=== PATIENT | female | born 2000 | race Caucasian/White ===

== ENCOUNTER 2019-07-25 11:11 | Observation (INO) | payer OTHER, SELFPAY ==
--- NOTE | 2019-07-25 11:21 | ED_ITS ---
Entered by Ilda Murry, acting as scribe for HPI - General Adult General: Chief complaint: Abdominal Pain Stated complaint: ABD PAIN Time Seen by Provider: 07/25/19 11:21 History of Present Illness: HPI narrative: 19 yo female presents with abd pain. Pt states that she has had this since Saturday night, her pain has lessoned but is still present. Pt states that she vomited from night until Saturday morning. Pt denies any abnormal vaginal discharge. MD complaint: low abdomen pain Onset (ago): day(s) (3) Location: abdomen Radiation: abdomen Severity: moderate Quality: stabbing Pain Consistency: constant Relieving factors: none Exacerbating factors: movement Associated symptoms: Reports nausea and vomiting; Deny chest pain, dyspnea, headache(s) or rash Review of Systems Const: Denies: fever, chills, body aches or change in appetite Eyes: Denies: blurry vision or eye discomfort ENMT: Denies: throat pain or dental pain Card: Denies: chest pain Resp: Denies: shortness of breath GI: Reports: abdominal pain, nausea and vomiting; Denies: diarrhea : Denies: painful urination Musc: Denies: neck pain or back pain Skin/Breast: Denies: rash Neuro: Denies: headache Psych: Denies: depression Maksim/Lymph: Denies: easy bruising All/Imm: Denies: hives PFSH ED PFSH: Social History Smoking and tobacco status: never smoked Physical Exam Const: COMMON NORMALS: no apparent distress, oriented x3 and healthy appearing HENMT: COMMON NORMALS: normocephalic and head/scalp atraumatic HEAD & SCALP: normocephalic and atraumatic Eye: COMMON NORMALS: PERRL and EOMs intact bilaterally PUPIL: Yes PERRL Neck/C-Spine: COMMON NORMALS: full ROM and supple Chest: COMMONS NORMALS: inspection of chest normal and palpation of chest normal Resp: COMMON NORMALS: normal respiratory effort, no retractions, no use of accessory muscles and clear to auscultation bilaterally AUSCULTATION: clear to auscultation bilaterally Cardio: COMMON NORMALS: regular rate, regular rhythm and no murmurs RATE: regular rate RHYTHM: regular rhythm GI: COMMON NORMALS: normal to inspection, nondistended, normoactive bowel sounds and soft to palpation PALPATION: Yes soft and Yes tender Details: RLQ Extremity: COMMON NORMALS: normal to inspection and full ROM Neuro: COMMON NORMALS: oriented x3, moves all extremities and no focal motor deficits Psych: COMMON NORMALS: mental status grossly normal, thought process normal and cooperative THOUGHT PROCESS: normal thought process Skin: COMMON NORMALS: no rashes or lesions noted and no wounds GENERAL SKIN EXAM: no rashes or lesions noted Course Vital Signs: Vital signs: Vital Signs Temperature 98.5 F 07/25/19 11:24 Pulse Rate 75 07/25/19 11:24 Respiratory Rate 16 07/25/19 11:24 Blood Pressure 113/70 07/25/19 11:24 Pulse Oximetry 100 07/25/19 11:24 MDM - General Adult MDM Narrative: Medical decision making narrative: Patient presents here with abdominal pain right lower quadrant. She has had continued tenderness here that is mild to moderate. Ultrasound showed an ovarian cyst on the left. CT showed possible appendicitis. I spoke to Dr. Weiss and will admit for further abdominal exams and to follow white count. Patient has been stable while here. Lab Data: Labs: Lab Results 07/25/19 07/25/19 07/25/19 Range/Units 11:39 11:39 11:39 WBC 10.4 H (4.0-10.0) 10^3/ uL RBC 4.46 (4.1-5.3) 10^6/u L Hgb 12.5 (11.5-15.3) g/dL Hct 39.3 (37.0-47.0) % MCV 88.1 (81-99) fL MCH 28.0 (28.0-34.0) pg MCHC 31.8 (30.0-36.0) g/dL RDW 13.0 (12.1-15.1) % Plt Count 275 (130-400) 10^3/c mm MPV 9.7 (7.4-10.4) fL Neut % (Auto) 67.3 % Lymph % (Auto) 24.6 % Lamb % (Auto) 6.4 % Eos % (Auto) 0.8 % Baso % (Auto) 0.5 % Neut # (Auto) 7.0 (1.8-7.7) 10^3/u L Lymph # (Auto) 2.6 (0.8-4.8) 10^3/u L Lamb # (Auto) 0.7 (0.2-0.9) 10^3/u L Eos # (Auto) 0.1 (0.0-0.8) 10^3/u L Baso # (Auto) 0.1 (0.0-0.1) 10^3/u L Nucleated RBC % (a uto) 0 % Nucleated RBCs # 0.0 /100WBC Sodium 137 (136-145) mmol/L Potassium 3.9 (3.5-5.1) mmol/L Chloride 98 (98-107) mmol/L Carbon Dioxide 25 (22-29) mmol/L Anion Gap 17.9 (5-19) BUN 9 (6-20) mg/dL Creatinine 0.8 (0.5-0.9) mg/dL GFR Calculation 90.5 (90-130) mL/min Glucose 92 (65-115) mg/dL Calcium 10.5 (8.5-10.5) mg/dL Total Bilirubin 0.5 (0.15-1.2) mg/dL AST 17 (0-32) U/L ALT 10 (0-33) U/L Alkaline Phosphata se 85 (35-105) IU/L Total Protein 8.9 H (6.6-8.7) g/dL Albumin 5.1 (3.5-5.2) g/dL Globulin 3.8 (1.3-4.6) g/dL Lipase 25 (13-60) U/L HCG, Qual Negative (Negative) Urine Color (Yellow) Urine Appearance (CLEAR) Urine pH (5-7) Ur Specific Gravit y (1.005-1.030) Urine Protein (Negative) Urine Glucose (UA) (Normal) Urine Ketones (Negative) Urine Blood (Negative) Urine Nitrate (Negative) Urine Bilirubin (NEGATIVE) Urine Urobilinogen (Negative) mg/dL Ur Leukocyte Juanita ase (Negative) Urine RBC (0-2) /hpf Urine WBC (0-5) /hpf Ur Squamous Epith Cells (0-5) Urine Bacteria (NONE) 07/25/19 Range/Units 11:39 WBC (4.0-10.0) 10^3/ uL RBC (4.1-5.3) 10^6/u L Hgb (11.5-15.3) g/dL Hct (37.0-47.0) % MCV (81-99) fL MCH (28.0-34.0) pg MCHC (30.0-36.0) g/dL RDW (12.1-15.1) % Plt Count (130-400) 10^3/c mm MPV (7.4-10.4) fL Neut % (Auto) % Lymph % (Auto) % Lamb % (Auto) % Eos % (Auto) % Baso % (Auto) % Neut # (Auto) (1.8-7.7) 10^3/u L Lymph # (Auto) (0.8-4.8) 10^3/u L Lamb # (Auto) (0.2-0.9) 10^3/u L Eos # (Auto) (0.0-0.8) 10^3/u L Baso # (Auto) (0.0-0.1) 10^3/u L Nucleated RBC % (a uto) % Nucleated RBCs # /100WBC Sodium (136-145) mmol/L Potassium (3.5-5.1) mmol/L Chloride (98-107) mmol/L Carbon Dioxide (22-29) mmol/L Anion Gap (5-19) BUN (6-20) mg/dL Creatinine (0.5-0.9) mg/dL GFR Calculation (90-130) mL/min Glucose (65-115) mg/dL Calcium (8.5-10.5) mg/dL Total Bilirubin (0.15-1.2) mg/dL AST (0-32) U/L ALT (0-33) U/L Alkaline Phosphata se (35-105) IU/L Total Protein (6.6-8.7) g/dL Albumin (3.5-5.2) g/dL Globulin (1.3-4.6) g/dL Lipase (13-60) U/L HCG, Qual (Negative) Urine Color Yellow (Yellow) Urine Appearance Cloudy (CLEAR) Urine pH 5.0 (5-7) Ur Specific Gravit y 1.030 (1.005-1.030) Urine Protein Trace (Negative) Urine Glucose (UA) Norm (Normal) Urine Ketones 1+ H (Negative) Urine Blood 3+ H (Negative) Urine Nitrate Negative (Negative) Urine Bilirubin Neg (NEGATIVE) Urine Urobilinogen Norm (Negative) mg/dL Ur Leukocyte Juanita ase 1+ H (Negative) Urine RBC 5-10 H (0-2) /hpf Urine WBC 10-15 H (0-5) /hpf Ur Squamous Epith Cells Too numerous to c nt H (0-5) Urine Bacteria 2+ H (NONE) Imaging Data^: CT Abd/Pel: Radiologist's impression: Ordering Provider/Ordering MD: Jaya Andrew MD Date of Service: 07/25/19 Procedure(s): CT abdomen pelvis w con* [id number] Accession Number(s): [id number] Report Number: [id number] PROCEDURE INFORMATION: Exam: CT Abdomen And Pelvis With Contrast Exam date and time: 07/25/2019 11:57 AM Age: 19 years old Clinical indication: Abdominal pain; Localized; Right lower quadrant (rlq); Additional info: Abd pain TECHNIQUE: Imaging protocol: Computed tomography of the abdomen and pelvis with intravenous contrast. Total DLP: 499.28 mGy-cm Radiation optimization: All CT scans at this facility use at least one of these dose optimization techniques: automated exposure control; mA and/or kV adjustment per patient size (includes targeted exams where dose is matched to clinical indication); or iterative reconstruction. Contrast material: OMNI 300; Contrast volume: 75 ml; Contrast route: LT AC; COMPARISON: No relevant prior studies available. FINDINGS: Liver: Normal. No mass. Gallbladder and bile ducts: Normal. No calcified stones. No ductal dilation. Pancreas: Normal. No ductal dilation. Spleen: Normal. No splenomegaly. Adrenals: Normal. No mass. Kidneys and ureters: Normal. No hydronephrosis. Stomach and bowel: Colonic constipation is present. Appendix: Appendix is mildly thickened measuring 8.7 mm seen best on the coronal image 29. No definite periappendiceal inflammatory stranding is seen. Intraperitoneal space: There is a moderate amount of free fluid in the pelvis. There is minimal internal complexity within the fluid raising concern for infection and/or hemorrhagic products. Vasculature: Unremarkable. No abdominal aortic aneurysm. Lymph nodes: Unremarkable. No enlarged lymph nodes. Bladder: Unremarkable as visualized. Reproductive: There are cystic lesions in the left ovary the larger of which measures 4.8 centimetres. Bones/joints: Unremarkable. No acute fracture. Soft tissues: Unremarkable. CT/CT abdomen pelvis w con* [id number] IMPRESSION: 1. Appendix is thickened measuring 8.7 mm. There are no definite periappendiceal inflammatory changes. This is an indeterminate appendix. Differential includes early acute appendicitis versus normal variant. If acute appendicitis is clinically suspected, repeat imaging is recommended. 2. There is a moderate amount of free fluid in the pelvis. Internal complexity within the free fluid raises concern for infection and/or hemorrhagic products. 3. There is a 4.8 cm left ovarian cyst with benign features.Recommend US follow-up in 6-12 weeks. 4. Colonic constipation is present. Discharge Plan Discharge Patient Disposition: Placed in Observation Admit Provider: Lan Weiss Clinical Impression: Abdominal pain Qualifiers: Abdominal location: right lower quadrant Qualified Code(s): R10.31 - Right lower quadrant pain Condition: Stable Discharge Date/Time: 07/25/19 16:39 Coding Level of Care Code ED Roaster Supervisor for Chg Fwd Exam Comprehensive The documentation recorded by the Jeanmarie rob Kialy, accurately reflects the service I personally performed and the decisions made by Lorrie sullivan Korby, MD Jul 25, 2019 11:11
[2019-07-25 11:24] VITALS: BP 113/70; PULSE 75; RESP 16; TEMP 36.9; O2SAT 100
[2019-07-25 11:45] LABS: Basophils # 0.1 10^3/uL (0.0-0.1); Basophils % 0.5 %; Eosinophils # 0.1 10^3/uL (0.0-0.8); Eosinophils % 0.8 %; Hematocrit 39.3 % (37.0-47.0); Hemoglobin 12.5 g/dL (11.5-15.3); Lymphocytes # 2.6 10^3/uL (0.8-4.8); Lymphocytes % 24.6 %; Mean Corpuscular HGB Conc 31.8 g/dL (30.0-36.0); Mean Corpuscular Volume 88.1 fL (81-99); Mean Platelet Volume 9.7 fL (7.4-10.4); Monocytes # 0.7 10^3/uL (0.2-0.9); Monocytes % 6.4 %; Neutrophils % 67.3 %; Nucleated Red Blood Cells % 0 %; Platelet Count 275 10^3/cmm (130-400); Red Blood Count 4.46 10^6/uL (4.1-5.3); White Blood Count 10.4 10^3/uL (4.0-10.0)
--- NOTE | 2019-07-25 11:45 | CTR_ITS ---
PROCEDURE INFORMATION: Exam: CT Abdomen And Pelvis With Contrast Exam date and time: 07/25/2019 11:57 AM Age: 19 years old Clinical indication: Abdominal pain; Localized; Right lower quadrant (rlq); Additional info: Abd pain TECHNIQUE: Imaging protocol: Computed tomography of the abdomen and pelvis with intravenous contrast. Total DLP: 499.28 mGy-cm Radiation optimization: All CT scans at this facility use at least one of these dose optimization techniques: automated exposure control; mA and/or kV adjustment per patient size (includes targeted exams where dose is matched to clinical indication); or iterative reconstruction. Contrast material: OMNI 300; Contrast volume: 75 ml; Contrast route: LT AC; COMPARISON: No relevant prior studies available. FINDINGS: Liver: Normal. No mass. Gallbladder and bile ducts: Normal. No calcified stones. No ductal dilation. Pancreas: Normal. No ductal dilation. Spleen: Normal. No splenomegaly. Adrenals: Normal. No mass. Kidneys and ureters: Normal. No hydronephrosis. Stomach and bowel: Colonic constipation is present. Appendix: Appendix is mildly thickened measuring 8.7 mm seen best on the coronal image 29. No definite periappendiceal inflammatory stranding is seen. Intraperitoneal space: There is a moderate amount of free fluid in the pelvis. There is minimal internal complexity within the fluid raising concern for infection and/or hemorrhagic products. Vasculature: Unremarkable. No abdominal aortic aneurysm. Lymph nodes: Unremarkable. No enlarged lymph nodes. Bladder: Unremarkable as visualized. Reproductive: There are cystic lesions in the left ovary the larger of which measures 4.8 centimetres. Bones/joints: Unremarkable. No acute fracture. Soft tissues: Unremarkable. CT/CT abdomen pelvis w con* [id number] IMPRESSION: 1. Appendix is thickened measuring 8.7 mm. There are no definite periappendiceal inflammatory changes. This is an indeterminate appendix. Differential includes early acute appendicitis versus normal variant. If acute appendicitis is clinically suspected, repeat imaging is recommended. 2. There is a moderate amount of free fluid in the pelvis. Internal complexity within the free fluid raises concern for infection and/or hemorrhagic products. 3. There is a 4.8 cm left ovarian cyst with benign features.Recommend US follow-up in 6-12 weeks. 4. Colonic constipation is present. Radiation Dose CTDIVOL = (mGy): DLP = 499.28 (mGy-cm)
[2019-07-25] MEDS: morphine 4 mg/mL SDV 1 mL IVP (11:53)
[2019-07-25] MEDS: ondansetron 2 mg/ML SDV 2 mL 4 MG IVP (11:54)
[2019-07-25 11:55] LABS: HCG Qualitative Urine. Negative (Negative); Urine Color Yellow (Yellow)
[2019-07-25 11:56] LABS: Add Urine Microscopic? YES; Bilirubin Urine Neg (NEGATIVE); Blood Urine 3+ (Negative); Glucose Urine UA Norm (Normal); Ketones Urine 1+ (Negative); Leukocyte Esterase Urine 1+ (Negative); Nitrate Urine Negative (Negative); Protein Urine Trace (Negative); Urine Appearance Cloudy (CLEAR); Urobilinogen Urine Norm (Negative)
[2019-07-25 12:01] LABS: Add Urine Culture? No; Bacteria Urine 2+; Squamous Epithelial Cell Urine TOO NUMEROUS TO CNT (0-5)
[2019-07-25 12:05] LABS: Alanine Aminotransferase 10 U/L (0-33); Albumin Level 5.1 g/dL (3.5-5.2); Alkaline Phosphatase 85 IU/L (35-105); Anion Gap 17.9 (5-19); Aspartate Amino Transferase 17 U/L (0-32); Blood Urea Nitrogen 9 mg/dL (6-20); Calcium 10.5 mg/dL (8.5-10.5); Carbon Dioxide 25 mmol/L (22-29); Chloride 98 mmol/L (98-107); Globulin 3.8 g/dL (1.3-4.6); Glomerular Filtration Rate 90.5 mL/min (90-130); Glucose 92 mg/dL (65-115); Lipase 25 U/L (13-60); Potassium 3.9 mmol/L (3.5-5.1); Sodium 137 mmol/L (136-145); Total Bilirubin 0.5 mg/dL (0.15-1.2); Total Protein 8.9 g/dL (6.6-8.7)
[2019-07-25] MEDS: iohexol 300 mg/mL 100 mL Btl IV (13:18)
--- NOTE | 2019-07-25 14:24 | USR_ITS ---
PROCEDURE INFORMATION: Exam: US Pelvis Complete, Transabdominal Exam date and time: 07/25/2019 2:42 PM Age: 19 years old Clinical indication: Abdominal pain; Right lower quadrant; Additional info: Abd pain TECHNIQUE: Imaging protocol: Real-time transabdominal pelvic ultrasound with image documentation. Complete exam. COMPARISON: CT abdomen pelvis w con* [id number] 07/25/2019 1:29 PM FINDINGS: Uterus/cervix: Endometrial stripe is homogeneous and measures 8 mm. The uterus measures 7.3 x 3.4 x 4.2 cm and is normal in echogenicity. Right adnexa: Right ovary measures 2.9 x 2.3 x 2.3 cm with a volume of 7.9 cc. Left adnexa: Left ovary measures 5.2 x 5.3 x 5.8 cm with a volume of 83.5 cc. There is a 3.8 x 3.5 by 3.9 cm cyst with benign features in the left ovary. Free fluid: There is a small to moderate amount of free fluid in the pelvis. The fluid in the pelvis appears simple without internal complexity on the ultrasound images. Bladder: Normal. US/US pelvic complete* [id number] IMPRESSION: 1. There is a 3.9 cm cyst in the left ovary with benign features. No follow-up is necessary. 2. Free pelvic peritoneal fluid, greater than physiologic amounts. Pattern is nonspecific however can be seen with a recently ruptured ovarian cyst, enteritis, or other acute abdominal/pelvic process.
[2019-07-25 16:38] VITALS: BP 115/71; PULSE 71; RESP 16; O2SAT 100
[2019-07-25] MEDS: sodium chloride 0.9% 1,000 ML 75 ML IV (17:19)
[2019-07-25 19:33] VITALS: BP 109/61; PULSE 75; RESP 18; TEMP 36.5; O2SAT 97
[2019-07-26] VITALS: BP 100/58; PULSE 81; RESP 19; TEMP 36.6; O2SAT 97
[2019-07-26 04:00] VITALS: BP 91/51; PULSE 77; RESP 18; TEMP 36.6; O2SAT 96
[2019-07-26 05:50] LABS: Basophils % 0.4 %; Eosinophils # 0.1 10^3/uL (0.0-0.8); Hematocrit 34.1 % (37.0-47.0); Hemoglobin 10.8 g/dL (11.5-15.3); Lymphocytes # 2.6 10^3/uL (0.8-4.8); Mean Corpuscular HGB Conc 31.7 g/dL (30.0-36.0); Mean Corpuscular Hemoglobin 28.1 pg (28.0-34.0); Mean Corpuscular Volume 88.6 fL (81-99); Mean Platelet Volume 10.1 fL (7.4-10.4); Monocytes # 0.5 10^3/uL (0.2-0.9); Monocytes % 6.3 %; Neutrophils # 4.1 10^3/uL (1.8-7.7); Neutrophils % 56.2 %; Nucleated Red Blood Cells % 0 %; Platelet Count 232 10^3/cmm (130-400); Red Blood Count 3.85 10^6/uL (4.1-5.3); Red Cell Distribution Width 12.9 % (12.1-15.1); White Blood Count 7.3 10^3/uL (4.0-10.0)
[2019-07-26] MEDS: sodium chloride 0.9% 1,000 ML 75 ML IV (05:54)
[2019-07-26 08:00] VITALS: BP 100/53; PULSE 79; RESP 18; TEMP 37.1; O2SAT 100
--- NOTE | 2019-07-26 09:16 | PM.SDS ---
Short Stay Summary Providers Date of Admit/Discharge: 07/27/19 Attending Provider: Lan Weiss MD Primary Care Provider: ROLANDO Wells Chief Complaint: RLQ ABD PAIN HPI History of Present Illness Jaquelin Elliott is a 19 year old female who developed right lower quadrant pain associated nausea about 48 hours prior. The patient states that nausea started initially and subsequently developed pain. She denies any fevers chills constipation or diarrhea. She never had any problem with ovarian cyst in the past and she usually has regular periods. She was in the ER last night due to persistent right lower quadrant pain and a CT abdomen pelvis showed a normal appendix and free fluid in the pelvis. Her white count is 10. Review of Systems General: Reports: 10 or more systems reviewed and unremarkable except in HPI and below Home Meds/Allergies Home Medications and Allergies Home Medications Medication Instructions Recorded Confirmed Type No Known Home Medications 07/25/19 07/25/19 History Allergies Allergy/AdvReac Type Severity Reaction Status Date / Time Penicillins Allergy ALGY-Hives Verified 07/25/19 11:23 PFSH Acute PFSH: Social History Smoking and tobacco status: never smoked Female Reproductive History: Date of last menstrual period: 06/27/19 Vitals/I&O/Wt Last Vital Signs Temp 98.7 F 07/26/19 08:00 Pulse 79 07/26/19 08:00 Resp 18 07/26/19 08:00 BP 100/53 07/26/19 08:00 Pulse Ox 100 07/26/19 08:00 07/25/19 07/26/19 07/26/19 22:59 06:59 14:59 Intake Total 943.75 / 943.75 Balance 943.75 / 943.75 Weight last 48 hrs Weight 113 lb Physical Exam Narrative: EXAM NARRATIVE: HEENT: Normocephalic Eye: Sclera /conjunctiva normal Respiratory and chest: Bilateral clear breath sounds on auscultation Cardiovascular: Normal S1 and S2 heart sounds Abdomen: Soft to palpation, mildly tender right lower quadrant, no guarding or rigidity Neurological: Oriented to place person and time Skin: Intact, no lesions appreciated on gross exam Hospital Course Hospital Course: She was was admitted to the hospital overnight for observation. Throughout her hospital stay she was afebrile and the only pain medicine she used was Tylenol. She denies any nausea or vomiting today she feels a bit hungry. Her repeat him WBC was 7. Her diet was therefore advanced. On CT scan she is also noticed noted to be constipated therefore she was given 1 bottle of magnesium citrate. She has a 4.8 cm left ovarian cyst that will need a follow-up ultrasound in 6 weeks SSS Data Data Completed and Pending: Completed Studies During Hospitalization Category Date Time Status CT abdomen pelvis w con* [id number] Urge nt Cat Scan 07/25/19 11:45 Completed US pelvic complet e* [id number] Urgent Ultrasound 07/25/19 14:24 Completed Pending at discharge Category Date Time Status Complete Blood Co unt w/Auto AM LABS Lab 07/27/19 04:00 Ordered Complete Blood Co unt w/Auto AM LABS Lab 07/28/19 04:00 Ordered Diagnoses at Discharge Discharge Diagnosis (1) Ruptured cyst of ovary: Status: Acute Discharge Plan Discharge Patient Disposition: Home, Self-Care Condition: Stable Prescriptions: No Action No Known Home Medications RF: 0 Discharge Orders: Discharge Order (Routine); Ordered 07/26/19 Ordered By: Lan Weiss Referrals: Rowdy Flores, [employer] [Primary Care Provider] - 6 Weeks (She was admitted to the hospital with right lower quadrant pain, likely a ruptured right ovarian cyst. She also has a 4.8 cm left ovarian cyst. Will need a follow-up ultrasound to further evaluate her left ovarian cyst in 4 to 6 weeks, thanks. please call Saturday to set up a follow up appointment) Lan Weiss MD [Physician] - None (Please follow up with Dr. Weiss PRN) Discharge Diet: Advance as tolerated Discharge Activity: Resume usual activity Patient Instructions: Abdominal Pain - Adult, Ovarian Cyst (DC) Stand Alone Forms: Work/School Release Discharge Date/Time: 07/26/19 14:39 Attestations Medical Necessity Statement*: abdominal pain likely from ruptured cyst Time Spent in Patient Care*: less than 30 min Quality Metrics Clinical Quality Measures: During this hospital stay, did patient experience: None Coding Level of Care Code Acute Quill Winder for Carolineg Fwd Diagnoses Ruptured cyst of ovary N83.209
[2019-07-26] MEDS: magnesium citrate Btl 296 mL 150 ML PO (10:02)
[2019-07-26 11:41] VITALS: BP 106/66; PULSE 68; RESP 16; TEMP 36.5; O2SAT 99
--- NOTE | 2019-07-26 12:08 | PC.CHAP ---
Pastoral Care Encounter/Spiritual Assessment Type of Contact [] Declined clinical services manager visit [] Patient/Family/Request visit [] Outpatient visit [] Follow-up visit [] Physician referral [] Code/Alert [] Routine visit [] Staff referral [] Actively dying [] Patient sleeping [] Family support [] [] Out of room [] Palliative care [] [] Receiving care in room [] Pre-surgical visit [] Trauma [] Long length of stay [] ICU visit [] Other: Relational/Emotional Strength [x] Patient feels connected with others/family/visitors/staff [] Distress [] Loneliness/isolation [] Abandonment Spirituality of Patient [x] Person of Blanche [] Attends Episcopalian of their Blanche [x] Believes in Prayer [] Reads Bible or Nondenominational materials [] There are Spiritual issues to be addressed Shop Fitter Interventions [x] Prayer [x] Active listening [x] Non-anxious presence [x] Spiritual/emotional support [] Crisis/trauma care [] Spiritual counseling [] Bereavement support [] Provided bereavement packet [] Provided Bible/devotional materials [] Provided toy/stuffed animal, coloring book to patient or family member [] Provided Communion [] Anointing/[place] [] Salvation [] Completed spiritual assessment [] Other: Impact on Illness or Injury [] Angry [] Fearful [] Anxious [] Often cries [] Exhaustion [] Unable to work [] Unable to attend mosque [] Unable to walk/stand [] Unable to read [] Unable to drive [] Unable to eat/drink [] Unable to sleep [] Unable to be with family [] Patient intubated [] Other: Summary Chaplains prayed with patient and 3 family members. Time spent with patient 15 minutes.
[2019-07-26 14:38] VITALS: BP 106/66; PULSE 68; RESP 16; TEMP 36.5; O2SAT 99
== END 2019-07-26 14:39 | disposition home or self-care (01) ==
LOC: ER 13:41 → MEDSURG 16:15
PROVIDERS: Admitting Provider Surgery; Emergency Provider Emergency Medicine; Family Provider Nurse Practitioner; PCP Nurse Practitioner; Visit Provider Surgery
DX: N83.291 Other ovarian cyst, right side (principal)
CPT/HCPCS: 12345; 36415; 74177; 76856; 80053; 81001; 81025; 83690; 85025; 96374; 96375; 96376; 99282; 99285; A9270; G0378; J0131; J2270; J2405; J7030; Q9967

== ENCOUNTER → 2019-09-03 13:06 | Outpatient (BNVA) | payer OTHER, SELFPAY | PROVIDERS: Family Provider Nurse Practitioner; PCP Nurse Practitioner; Visit Provider Obstetrics & Gynecology Female Pelvic Medicine and Reconstructive Surgery | DX: R10.2 Pelvic and perineal pain (principal) | CPT/HCPCS: 76830; G0328 ==

== ENCOUNTER 2019-09-29 01:08 | Emergency (ER) | payer OTHER, SELFPAY ==
[2019-09-29 01:20] VITALS: BP 127/88; PULSE 122; RESP 18; TEMP 37.8; O2SAT 98
--- NOTE | 2019-09-29 01:22 | US_ITS ---
WS: [id number] Complete ABDOMINAL ULTRASOUND HISTORY: Abdominal Pain COMPARISON: None available. Liver: 10.6 cm in length. Liver is normal size and echogenicity with no mass or intrahepatic dilatati on. Gallbladder: Normally distended with no gallstones, wall thickening or pericholecystic fluid. Gallbladder wall thickness: 0.1 cm. Pancreas: Normal size and echogenicity. CBD: 0.4 cm. Right kidney: 9.6 cm x 4.5 cm x 3.9 cm. No mass, cortical thickening or hydronephrosis. Left kidney: 9.3 cm x 4.4 cm x 4.1 cm. No mass, cortical thickening or hydronephrosis. Spleen: Normal size and echogenicity. Abdominal aorta and IVC are within normal limits. No ascites. US/US abdomen complete* [id number] IMPRESSION: Normal complete abdomen ultrasound.
--- NOTE | 2019-09-29 01:23 | ED_ITS ---
HPI - Abdominal Pain General: Chief Complaint: Abdominal Pain Stated Complaint: lower abd pain Time Seen by Provider: 09/29/19 01:16 History of Present Illness: HPI narrative: Jaquelin is a nice 19-year-old female who comes in complaining of right-sided abdominal pain for the past 2 days. The pain is getting progressively worse and tonight she began to have vomiting and diarrhea with this. She denies any fever. She denies dysuria, urinary frequency urgency. She had no vaginal discharge or bleeding. She states moving or walking makes her symptoms worse and rest makes them better. Associated Symptoms: Reports diarrhea, nausea and vomiting; Denies chills, coffee ground emesis, constipation, GI cramping, dysuria, fever(s), hematochezia, hematuria, hematemesis, melena and syncope Related Data: Date of Last Menstrual Period: 06/27/19 Review of Systems General: Reports: other (negative unless marked) Const: Denies: fever, chills, body aches, fatigue, malaise or diaphoresis Eyes: Denies: change in vision or blurry vision ENMT: Denies: throat pain, painful swallowing, hoarseness, ear pain, ear discharge, Change in hearing or nasal discharge Card: Denies: chest pain, palpitations, irregular heart rhythm, syncope, pre- syncope, shortness of breath on exertion or shortness of breath when lying down Resp: Denies: shortness of breath, productive cough, non-productive cough, wheezing, coughing up blood or chest congestion GI: Reports: abdominal pain, nausea, vomiting and diarrhea; Denies: vomiting blood, coffee grounds in vomit, constipation, cramping, blood in stool or black tarry stool : Denies: flank pain, painful urination, urinary frequency, urinary urgency, decreased urine ouput, urinary incontinence or blood in urine Musc: Denies: neck pain, back pain, extremity pain, extremity swelling, joint pain, joint swelling, joint warmth or joint stiffness Skin/Breast: Denies: rash, skin tenderness or yellow skin Neuro: Denies: headache, numbness in extremities, weakness in extremities, changes in sensation, lack of coordination, difficulty walking, dizziness, vertigo or confusion Endo: Denies: excessive thirst, tired all the time, cold intolerance, excessive sweating, flushing or hot flashes Maksim/Lymph: Denies: easy bruising, easy bleeding, petechiae or enlarged lymph nodes All/Imm: Denies: hives, throat swelling, tongue swelling, facial swelling or acute wheezing PFSH ED PFSH: Medical History 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 Family History Mother Cancer Skin cancer Hypertension Denies family history of Diabetes CAD (coronary artery disease) Clotting disorder Dementia Hyperlipidemia Psychiatric illness Chronic kidney disease (CKD) Suicide Anesthesia complication Bleeding disorder Family history of premature coronary artery disease Lung disease Stroke Social History Smoking and tobacco status: never smoked Alcohol intake: never Female Reproductive History: Date of last menstrual period: 06/27/19 Physical Exam Const: COMMON NORMALS: no apparent distress, oriented x3, no limitations, healthy appearing and well nourished EXAM LIMITATIONS: no altered mental status GENERAL APPEARANCE: cooperative, well kempt and well developed ORIENTATION/CONSCIOUSNESS: Yes awake HENMT: COMMON NORMALS: normocephalic, head/scalp atraumatic, hearing grossly normal bilaterally, external ears normal, EAC's normal, external nose normal and moist oral mucous membranes HEAD & SCALP: normal to inspection, normocephalic and atraumatic FACE & SINUS: normal facial exam and face symmetric NOSE: external nose normal and nares normal EXTERNAL EAR: Yes external ears normal EXTERNAL AUDITORY CANAL: EAC's normal MOUTH: oral and palatal mucosa normal and tongue normal Eye: COMMON NORMALS: PERRL, EOMs intact bilaterally, conjunctivae normal and no scleral icterus GENERAL EYE: normal appearance of both eyes and normal light reflex CONJUNCTIVA: Yes conjunctivae normal SCLERA: sclerae normal CORNEA: Yes corneas normal PUPIL: Yes PERRL DIRECT OPHTHALMOSCOPY: Yes normal light reflex Neck/C-Spine: COMMON NORMALS: full ROM, no lymphadenopathy, supple, no meningeal signs and no JVD GENERAL: Yes normal visual inspection and Yes trachea midline CERVICAL SPINE: Yes cervical ROM normal Chest: COMMONS NORMALS: inspection of chest normal and palpation of chest normal Resp: COMMON NORMALS: normal respiratory effort, no retractions, no use of accessory muscles and clear to auscultation bilaterally EFFORT & INSPECTION: Yes able to speak in complete sentences AUSCULTATION: clear to auscultation bilaterally Cardio: COMMON NORMALS: no JVD, regular rate, regular rhythm, S1 normal heart sound, S2 normal heart sound, no gallops, no clicks, no murmurs and no rub JUGULAR VENOUS DISTENTION: no JVD RATE: regular rate RHYTHM: regular rhythm HEART SOUNDS: S1 normal and S2 normal GI: COMMON NORMALS: soft to palpation, no hepatosplenomegaly and no masses PALPATION: Yes soft, Yes tender Details: RLQ and RUQ, No guarding, No rigid and Yes no hepatosplenomegaly : COMMON NORMALS: Yes no CVA tenderness BLADDER/KIDNEY EXAM: Yes no CVA tenderness Back/Pelvis: COMMON NORMALS: no CVA tenderness, thoracic and lumbar spine normal to inspection, no thoracic nor lumbar tenderness and thoraco-lumbar ROM normal Extremity: COMMON NORMALS: normal to inspection, full ROM, normal capillary refill, no joint enlargement, no clubbing, cyanosis or edema and no calf tender ness Neuro: COMMON NORMALS: oriented x3, CN's II-XII intact bilaterally, moves all extremities, no focal motor deficits and no sensory deficits noted MENINGEAL SIGNS: Yes no meningeal signs Psych: COMMON NORMALS: mental status grossly normal, thought process normal, cooperative, affect normal, speech normal and activity/motor behavior normal APPEARANCE: Yes well kempt SPEECH: Yes normal speech THOUGHT PROCESS: normal thought process Skin: COMMON NORMALS: no rashes or lesions noted, skin turgor normal, no jaundice, no petechiae and no mottling GENERAL SKIN EXAM: no rashes or lesions noted and turgor normal Course Vital Signs: Vital signs: Vital Signs Temperature 100.0 F H 09/29/19 01:20 Pulse Rate 116 H 09/29/19 02:42 Respiratory Rate 18 09/29/19 02:42 Blood Pressure 108/72 09/29/19 02:42 Pulse Oximetry 100 09/29/19 02:42 MDM - Abdominal Pain MDM Narrative: Medical decision making narrative: Jaquelin is a nice 19-year-old female comes in with intermittent pain for the past 3 days. Pain is generalized in location. CT scan shows a normal appendix and her ultrasound is unremarkable. CT did show enteritis. Patient wants to go home with something for this so I will put her on Zofran as well as Cipro and Flagyl. She agrees to return should her symptoms change or worsen I did advise her about the possibility of developing appendicitis. She agrees to return if necessary otherwise she will take the medicines I have given her and follow-up with her regular doctor. Lab Data: Attestation: I reviewed the patient's lab results. Labs: Lab Results 09/29/19 09/29/19 09/29/19 Range/Units 01:42 01:42 01:42 WBC 15.6 H (4.0-10.0) 10^3/ uL RBC 5.13 (4.1-5.3) 10^6/u L Hgb 14.4 (11.5-15.3) g/dL Hct 43.8 (37.0-47.0) % MCV 85.4 (81-99) fL MCH 28.1 (28.0-34.0) pg MCHC 32.9 (30.0-36.0) g/dL RDW 12.3 (12.1-15.1) % Plt Count 288 (130-400) 10^3/c mm MPV 10.0 (7.4-10.4) fL Neut % (Auto) 92.0 % Lymph % (Auto) 4.4 % Haines % (Auto) 3.0 % Eos % (Auto) 0.1 % Baso % (Auto) 0.3 % Neut # (Auto) 14.4 H (1.8-7.7) 10^3/u L Lymph # (Auto) 0.7 L (0.8-4.8) 10^3/u L Haines # (Auto) 0.5 (0.2-0.9) 10^3/u L Eos # (Auto) 0.0 (0.0-0.8) 10^3/u L Baso # (Auto) 0.0 (0.0-0.1) 10^3/u L Nucleated RBC % (a uto) 0 % Nucleated RBCs # 0.0 /100WBC Sodium 137 (136-145) mmol/L Potassium 4.0 (3.5-5.1) mmol/L Chloride 97 L (98-107) mmol/L Carbon Dioxide 19 L (22-29) mmol/L Anion Gap 25.0 H (5-19) BUN 9 (6-20) mg/dL Creatinine 0.8 (0.5-0.9) mg/dL GFR Calculation 90.5 (90-130) mL/min Glucose 123 H (65-115) mg/dL Calculated Osmolal ity 281 L (285-295) mOsm/k g Calcium 10.7 H (8.5-10.5) mg/dL Total Bilirubin 0.7 (0.15-1.2) mg/dL AST 30 (0-32) U/L ALT 38 H (0-33) U/L Alkaline Phosphata se 70 (35-105) IU/L Total Protein 9.5 H (6.6-8.7) g/dL Albumin 5.4 H (3.5-5.2) g/dL Globulin 4.1 (1.3-4.6) g/dL Lipase 17 (13-60) U/L HCG, Qual Negative (Negative) Imaging Data ^: US: My impression: Ultrasound abdomen, tech interpretation -see formal report. No acute abnormal findings. CT Abd/Pel: Radiologist's impression: [place] [address] CT Scan Report Signed Patient: Jaquelin Elliott Unit #: [id number] : 2000 Age/Sex: 19 / F ADM Date: 09/29/19 Loc: ER Room/Bed: Attending Dr: Ordering Provider/Ordering MD: Cyndie Matthews DO Date of Service: 09/29/19 Procedure(s): CT abdomen pelvis w con* [id number] Accession Number(s): [id number] Report Number: [id number] PROCEDURE INFORMATION: Exam: CT Abdomen And Pelvis With Contrast Exam date and time: 09/29/2019 2:15 AM Age: 19 years old Clinical indication: Abdominal pain; Localized; Right lower quadrant (rlq); Additional info: Abdominal pain - rlq TECHNIQUE: Imaging protocol: Computed tomography of the abdomen and pelvis with intravenous contrast. Total DLP: 500.54 mGy-cm Radiation optimization: All CT scans at this facility use at least one of these dose optimization techniques: automated exposure control; mA and/or kV adjustment per patient size (includes targeted exams where dose is matched to clinical indication); or iterative reconstruction. Contrast material: OMNI 300; Contrast volume: 95 ml; Contrast route: IV; COMPARISON: CT abdomen pelvis w con* [id number] 2019-07-25 13:29 FINDINGS: Liver: Normal. No mass. Gallbladder and bile ducts: Normal. No calcified stones. No ductal dilation. Pancreas: Normal. No ductal dilation. Spleen: Normal. No splenomegaly. Adrenals: Normal. No mass. Kidneys and ureters: Normal. No hydronephrosis. Stomach and bowel: Excessive small bowel fluid and mucosal enhancement, correlate for enteritis or viral disease . Appendix: Normal appendix. Intraperitoneal space: Unremarkable. No free air. No significant fluid collection. Vasculature: Unremarkable. No abdominal aortic aneurysm. Lymph nodes: Unremarkable. No enlarged lymph nodes. Bladder: Unremarkable as visualized. Reproductive: Physiologic left ovarian changes. Bones/joints: Unremarkable. No acute fracture. Soft tissues: Unremarkable. CT/CT abdomen pelvis w con* [id number] IMPRESSION: 1. Normal appendix. 2. Excessive small bowel fluid and mucosal enhancement, correlate for enteritis or viral disease . Radiation Dose CTDIVOL = (mGy): DLP = 500.54 (mGy-cm) Dictated By: Luis Miguel José MD Signed By: Luis Miguel José MD Signed Date/Time: 09/29/19243 DD/ 1 Discharge Plan Discharge Patient Disposition: Home, Self-Care Clinical Impression: Enteritis Abdominal pain Qualifiers: Abdominal location: generalized Qualified Code(s): R10.84 - Generalized abdominal pain Condition: Stable Prescriptions: New Cipro 500 mg tablet 500 mg PO Q12H Qty: 10 RF: 0 Flagyl 500 mg tablet 500 mg PO Q8H 5 Days Qty: 15 RF: 0 Zofran 4 mg tablet 4 mg PO TID PRN (Reason: nausea and vomiting) 5 Days RF: 0 No Action Cryselle (28) 0.3-30 mg-mcg tablet 1 tab PO DAILY Qty: 84 RF: 3 Discharge Orders: Discharge Order (Routine); Ordered 09/29/19 Ordered By: Cyndie Matthews Referrals: Rowdy Flores, RECOOPERER-C [Primary Care Provider] - 1-3 days Discharge Diet: Advance as tolerated and Clear Liquid Discharge Activity: Resume usual activity Patient Instructions: Abdominal Pain (ED) Activity Restrictions/Additional Instructions: Please return to the ER immediately for any of the signs or symptoms listed on your discharge instruction sheets, worsening/changing of your symptoms, you are not getting better as quickly as expected, or for ANY other cause or concerns. Return to the ER if your pain returns, you began to vomit again, he develop fevers or chills, or for any other cause for concern. Coding Level of Care Code ED [employer] Sprayer for Carolineg Fwd Exam Comprehensive
[2019-09-29 01:52] LABS: Basophils % 0.3 %; Eosinophils % 0.1 %; Hematocrit 43.8 % (37.0-47.0); Hemoglobin 14.4 g/dL (11.5-15.3); Lymphocytes # 0.7 10^3/uL (0.8-4.8); Lymphocytes % 4.4 %; Mean Corpuscular HGB Conc 32.9 g/dL (30.0-36.0); Mean Corpuscular Hemoglobin 28.1 pg (28.0-34.0); Mean Corpuscular Volume 85.4 fL (81-99); Monocytes # 0.5 10^3/uL (0.2-0.9); Neutrophils # 14.4 10^3/uL (1.8-7.7); Nucleated Red Blood Cells % 0 %; Platelet Count 288 10^3/cmm (130-400); Red Blood Count 5.13 10^6/uL (4.1-5.3); Red Cell Distribution Width 12.3 % (12.1-15.1); White Blood Count 15.6 10^3/uL (4.0-10.0)
[2019-09-29 02:03] LABS: HCG, Serum Qual Negative (Negative)
--- NOTE | 2019-09-29 02:03 | CTR_ITS ---
PROCEDURE INFORMATION: Exam: CT Abdomen And Pelvis With Contrast Exam date and time: 09/29/2019 2:15 AM Age: 19 years old Clinical indication: Abdominal pain; Localized; Right lower quadrant (rlq); Additional info: Abdominal pain - rlq TECHNIQUE: Imaging protocol: Computed tomography of the abdomen and pelvis with intravenous contrast. Total DLP: 500.54 mGy-cm Radiation optimization: All CT scans at this facility use at least one of these dose optimization techniques: automated exposure control; mA and/or kV adjustment per patient size (includes targeted exams where dose is matched to clinical indication); or iterative reconstruction. Contrast material: OMNI 300; Contrast volume: 95 ml; Contrast route: IV; COMPARISON: CT abdomen pelvis w con* [id number] 2019-07-25 13:29 FINDINGS: Liver: Normal. No mass. Gallbladder and bile ducts: Normal. No calcified stones. No ductal dilation. Pancreas: Normal. No ductal dilation. Spleen: Normal. No splenomegaly. Adrenals: Normal. No mass. Kidneys and ureters: Normal. No hydronephrosis. Stomach and bowel: Excessive small bowel fluid and mucosal enhancement, correlate for enteritis or viral disease . Appendix: Normal appendix. Intraperitoneal space: Unremarkable. No free air. No significant fluid collection. Vasculature: Unremarkable. No abdominal aortic aneurysm. Lymph nodes: Unremarkable. No enlarged lymph nodes. Bladder: Unremarkable as visualized. Reproductive: Physiologic left ovarian changes. Bones/joints: Unremarkable. No acute fracture. Soft tissues: Unremarkable. CT/CT abdomen pelvis w con* [id number] IMPRESSION: 1. Normal appendix. 2. Excessive small bowel fluid and mucosal enhancement, correlate for enteritis or viral disease . Radiation Dose CTDIVOL = (mGy): DLP = 500.54 (mGy-cm)
[2019-09-29 02:05] LABS: Alanine Aminotransferase 38 U/L (0-33); Albumin Level 5.4 g/dL (3.5-5.2); Alkaline Phosphatase 70 IU/L (35-105); Aspartate Amino Transferase 30 U/L (0-32); Blood Urea Nitrogen 9 mg/dL (6-20); Calcium 10.7 mg/dL (8.5-10.5); Carbon Dioxide 19 mmol/L (22-29); Chloride 97 mmol/L (98-107); Globulin 4.1 g/dL (1.3-4.6); Glomerular Filtration Rate 90.5 mL/min (90-130); Glucose 123 mg/dL (65-115); Lipase 17 U/L (13-60); Osmolality Calculated 281 mOsm/kg (285-295); Sodium 137 mmol/L (136-145); Total Bilirubin 0.7 mg/dL (0.15-1.2); Total Protein 9.5 g/dL (6.6-8.7)
[2019-09-29] MEDS: sodium chloride 0.9% 1,000 ML 999 ML IV ×2 (02:15→03:28)
[2019-09-29] MEDS: iohexol 300 mg/mL 100 mL Btl IV (02:19)
[2019-09-29 02:42] VITALS: BP 108/72; PULSE 116; RESP 18; O2SAT 100
[2019-09-29] MEDS: metroNIDAZOLE 500 MG Tablet PO (03:28)
[2019-09-29 03:30] VITALS: BP 125/81; PULSE 130; RESP 17; O2SAT 100
--- NOTE | 2019-09-29 03:39 | PC.NURSE ---
Patient gagged on cipro & spit it out. I asked if we need to cut it in half for her, said she can not take it and asked for the trash can to throw it away. It was explained to her that she has a Rx for these medications when she is discharged to take to get better, she acknowledge understanding.
[2019-09-29 04:40] VITALS: BP 119/77; PULSE 107; RESP 17; O2SAT 98
== END 2019-09-29 04:40 | disposition home or self-care (01) ==
PROVIDERS: Emergency Provider Emergency Medicine; Family Provider Nurse Practitioner; PCP Nurse Practitioner
DX: K52.9 Noninfective gastroenteritis and colitis, unspecified (principal)
CPT/HCPCS: 12345; 74177; 76700; 80053; 83690; 84703; 85025; 87086; 96360; 96361; 96365; 96366; 96374; 96375; 99283; 99284; J0131; J7030; Q9967

== ENCOUNTER → 2019-11-04 16:52 | Outpatient (BNVA) | payer OTHER, SELFPAY | PROVIDERS: Family Provider Nurse Practitioner; PCP Nurse Practitioner; Visit Provider Nurse Practitioner | DX: R10.84 Generalized abdominal pain (principal); R53.83 Other fatigue; E55.9 Vitamin D deficiency, unspecified; F41.9 Anxiety disorder, unspecified; R10.31 Right lower quadrant pain | CPT/HCPCS: 80053; 81003; 82306; 82607; 83540; 84439; 84443; 84481; 85025 ==

== ENCOUNTER → 2020-01-26 11:08 | Outpatient (BNVA) | payer OTHER, SELFPAY | PROVIDERS: Family Provider Nurse Practitioner; PCP Nurse Practitioner; Visit Provider Nurse Practitioner Family | DX: E55.9 Vitamin D deficiency, unspecified (principal); M25.561 Pain in right knee; M25.512 Pain in left shoulder; N63.10 Unspecified lump in the right breast, unspecified quadrant; N63.20 Unspecified lump in the left breast, unspecified quadrant | CPT/HCPCS: 80053; 85025 ==

== ENCOUNTER 2020-03-30 09:21 | Outpatient (CLI) | payer OTHER, SELFPAY ==
--- NOTE | 2020-03-30 10:30 | MM_ITS ---
WS: [id number] BILATERAL DIGITAL DIAGNOSTIC MAMMOGRAM MAMMOGRAPHY WITH CAD CLINICAL INFORMATION: bilateral breast lumps COMPARISON: None. TECHNIQUE: Bilateral CC, MLO, and ML views. FINDINGS: The breasts are composed of heterogeneous fibroglandular density, which can limit the detection of sm all underlying mass lesions. Spot compression views right breast. Dense underlying breast tissue. 8 m illimeter lesion in the right breast near the 9:00 position likely corresponds to findings on the con current ultrasound. No other mammographic abnormalities. See ultrasound report for further detail. ULTRASOUND BREAST BILATERAL TECHNIQUE: Ultrasound bilateral breast focused area of concern. CLINICAL INFORMATION: bilateral breast lumps COMPARISON: None. FINDINGS: RIGHT BREAST Ultrasound right breast: In the area of palpable concern there is a well-circumscribed solid hypoecho ic lesion at the 8:00 position 2 cm from the nipple measuring 1.7 x 0.8 x 1.6 CM. Findings are nonspe cific but may represent fibroadenoma in a patient this age. Considering the size recommend further ev aluation with ultrasound-guided biopsy. At the 9:00 position, additional lobulated similar-appearing well-circumscribed hypoechoic lesion me asuring 1.1 x 0.3 x 1.0 cm. In addition, at the 10:00 position there is a small incidental cyst measu ring 4.4 x 2.7 x 4.0 mm LEFT: Ultrasound left breast at the 8:00-1000 position. Dense parenchymal tissue. Hypoechoic lesion at the 10:00 position 2 cm from the nipple measuring 9.9 x 4.2 x 6.8 mm likely represents a complex cyst wit h internal debris vs fibroadenoma. In addition, at the 5:00 position there is a small hypoechoic cyst that has a benign appearance measuring 2.4 x 2.2 mm. Recommend 6 month follow-up of the left breast lesions. MM/[place] [id number] IMPRESSION: 1. Hypoechoic solid nodule in the right breast at the 8:00 position measuring 1.7 x 0.7 x 1.6 cm. RECOMMEND FURTHER EVALUATION RIGHT BREAST LESION WITH ULTRA SOUND-GUIDED BIOPSY. 2. Additional similar-appearing smaller nodule right breast at the 9:00 positi on measuring 1.1 x 0.3 x 1.0 cm. RECOMMEND 6 MONTH FOLLOW-UP RIGHT BREAST WITH ULTRASOUND. 3. Two additional lesions in the left breast described above are probably benig n and RECOMMEND 6 MONTH FOLLOW-UP ULTRASOUND LEFT BREAST. BI-RADS: 4-Suspicious Finding-Biopsy Should Be Considered FOLLOW UP: US Guided Biopsy Recommended RECOMMEND ULTRASOUND-GUIDED BIOPSY OF THE DOMINANT RIGHT BREAST LESION. RECOMMEND 6 MONTH FOLLOW-UP BILATERAL BREAST ULTRASOUND OF THE REMAINING LESION S
== END 2020-03-30 09:22 | disposition home or self-care (01) ==
LOC: RAD 09:23
PROVIDERS: PCP Nurse Practitioner; Visit Provider Nurse Practitioner Family
DX: N63.20 Unspecified lump in the left breast, unspecified quadrant (principal); N63.13 Unspecified lump in the right breast, lower outer quadrant
CPT/HCPCS: 76642; 77066

== ENCOUNTER 2020-04-13 11:50 | Outpatient (CLI) | payer OTHER, SELFPAY ==
--- NOTE | 2020-04-13 13:00 | US_ITS ---
WS: [id number] ULTRASOUND-GUIDED RIGHT BREAST BIOPSY CLINICAL INFORMATION: Hypoechoic solid nodule in the right breast at 8:00 COMPARISON: None. FINDINGS: The procedure including risks, benefits, and complications were discussed with the patient who agreed to proceed. Using sterile technique patient was prepped and draped in the usual sterile fashion. Aft er 1% lidocaine utilizing real-time ultrasound guidance 5 14-gauge cores were obtained of the right b reast lesion at the 8 o'clock position. A titanium clip was not placed. No immediate complications. PATHOLOGY DEMONSTRATES Breast, right , 8 O' clock, ultrasound-guided biopsy: -Fibroadenoma. -No malignancy identified. US/[place] [id number] IMPRESSION: 1. Uncomplicated ultrasound-guided right breast biopsy. 2. The pathology demonstrates fibroadenoma. No malignancy identified. BI-RADS: 2-Benign FOLLOW UP: 6 Month Follow-up Recommend 6 month follow-up right breast diagnostic mammography and ultrasound postbiopsy
== END 2020-04-13 11:51 | disposition home or self-care (01) ==
LOC: RAD 11:58
PROVIDERS: PCP Nurse Practitioner; Visit Provider Nurse Practitioner Family
DX: N63.13 Unspecified lump in the right breast, lower outer quadrant (principal); D24.1 Benign neoplasm of right breast
CPT/HCPCS: 19083; 88305

== ENCOUNTER → 2020-05-18 11:00 | Outpatient (BNVA) | payer OTHER, SELFPAY | PROVIDERS: PCP Nurse Practitioner; Visit Provider Nurse Practitioner | DX: D24.9 Benign neoplasm of unspecified breast (principal) | CPT/HCPCS: 71046 ==

== ENCOUNTER 2020-07-25 08:02 | Emergency (ER) | payer OTHER, SELFPAY ==
[2020-07-25 08:06] VITALS: BP 125/80; PULSE 102; RESP 18; TEMP 36.7; O2SAT 100; BMI 18.6
--- NOTE | 2020-07-25 08:10 | XR_ITS ---
WS: [id number] Exam: XR hand RT min 3V* [id number] Date/Time of Exam: 07/25/2020 8:22 AM Reason For Exam: fall/pain Findings: No fractures, soft tissue swelling, or unusual calcifications are noted. The hand shows normal bony alignment. There is no irregularity of the bony architecture. XR/XR hand RT min 3V* [id number] IMPRESSION: Normal right hand.
--- NOTE | 2020-07-25 08:10 | XR_ITS ---
WS: [id number] Exam: XR lumbar spine 2-3V* [id number] Date/Time of Exam: 07/25/2020 8:22 AM Reason For Exam: fall/pain Findings: In the AP projection, the lumbar spine is straight. The sacroiliac joints are open. The facet struc tures are bilaterally symmetrical. In the lateral projection, the lumbar curve is well maintained. The intervertebral disc spaces are intact. No fractures or anomalies of the lumbar spine are noted. XR/XR lumbar spine 2-3V* [id number] IMPRESSION: Negative lumbar spine.
--- NOTE | 2020-07-25 08:10 | ED_ITS ---
HPI - Fall General: Chief Complaint: Fall Stated Complaint: FALL Time Seen by Provider: 07/25/20 08:04 Source: patient Mode of arrival: ambulatory Limitations: no limitations History of Present Illness: HPI Narrative: Patient is a 20-year-old female who presents to ED today along with her mother for evaluation following a slip and fall on ice earlier this morning. Patient is complaining of pain to her right hand and back. She denies striking her head but states she may have blacked out for a few seconds. Patient is not complaining of a headache. She is alert and oriented upon arrival. Mother reports normal mental status since the event. She has not complained of neck pain. MD complaint: fall Onset (ago): hour(s) Fall from: standing Fall witnessed: yes, by family Place fall occurred: home Loss of consciousness: Unsure Length of LOC: second(s) Prolonged down time: no Symptoms prior to fall: none Context: tripped/slipped (ice) Location of injury: back Location of injury - extremities: Right: hand Severity: mild Associated symptoms-after fall: Reports no associated symptoms; Denies chest pain, confusion, difficulty walking, headache(s), lightheadedness or neck pain Review of Systems Eyes: Denies: change in vision, blurry vision, photophobia, floaters or seeing flashes Card: Denies: chest pain, palpitations or lightheadedness Resp: Denies: dyspnea GI: Denies: nausea or vomiting Musc: Reports: back pain and extremity pain (R hand); Denies: neck pain, extremity swelling, joint pain, joint swelling or limited range of motion Neuro: Denies: headache(s), numbness in extremities, weakness in extremities, sensory changes, lack of coordination, difficulty walking, dizziness, confusion, Slurred speech present, difficulty communicating thoughts or seizure-like activity PFS ED PFSH: Medical History (Updated 07/25/20 @ 08:58 by PATRICK Damon) 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 Surgical History History of nasal surgery Family History Mother Cancer Skin cancer Grandmother Hypertension Denies family history of Diabetes CAD (coronary artery disease) Clotting disorder Dementia Hyperlipidemia Psychiatric illness Chronic kidney disease (CKD) Suicide Anesthesia complication Bleeding disorder Family history of premature coronary artery disease Lung disease Stroke Social History Smoking and tobacco status: never smoked Second hand smoke exposure: No Smoking risk assessment/counseling performed?: No Alcohol intake: never Desire information about alcohol rehabilitation?: No Counseling given: No Desire information about substance/drug rehabilitation?: No Counseling given: No Adopted: No Caregiver/support person: No Lives independently: Yes Household members: family Housing: House Marital status: Single Number of children: 0 Highest education level completed: High School Graduate service: No Current occupational status: student Pets and animals: Yes History of recent travel: No Current gender identity: Female Female Reproductive History: Date of last menstrual period: 04/04/20 Physical Exam Const: COMMON NORMALS: no acute distress, average body habitus, patient oriented x3, no limitations, healthy appearing, alert and well nourished GENERAL APPEARANCE: cooperative ORIENTATION/CONSCIOUSNESS: Yes awake, Yes oriented to person, Yes oriented to place and Yes oriented to time HENMT: COMMON NORMALS: normocephalic and atraumatic HEAD & SCALP: normal to inspection, normocephalic and atraumatic FACE & SINUS: normal facial exam Eye: COMMON NORMALS: Equal, round and reactive pupils present and EOMs intact bilaterally GENERAL EYE: appearance normal, both eyes and all related structures PUPIL: Yes Equal, round and reactive pupils present Neck/C-Spine: COMMON NORMALS: full ROM CERVICAL SPINE: Yes cervical ROM normal, No pain with cervical ROM, No Cervical spine tenderness and No Paracervical muscle tenderness Resp: COMMON NORMALS: normal respiratory effort : COMMON NORMALS: Yes no CVA tenderness BLADDER/KIDNEY EXAM: Yes no CVA tenderness Back/Pelvis: COMMON NORMALS: no CVA tenderness and thoraco-lumbar ROM normal THORACIC SPINE/UPPER BACK: Yes thoracic ROM normal, Yes thoracic spinal tenderness (mid T spine) and No paraspinal muscle tenderness LUMBAR SPINE/LOWER BACK: Yes lumbar ROM normal, Yes lumbar spinal tenderness (mid L spine) and No paraspinal muscle tenderness PELVIS: Yes buttocks normal SACROILIAC JOINTS: Yes SI joints normal Extremity: COMMON NORMALS: full ROM GENERAL: Yes normal exam except as noted OTHER: TTP thenar eminence R hand Neuro: LATHA COMA SCALE: document [facility]CS findings [place] coma scale eye opening: Spontaneous [place] coma scale verbal response: Orientated [place] coma scale motor response: Obey commands [place] coma scale total score: 15 COMMON NORMALS: patient oriented x3, CN's II-XII intact bilaterally, moves all extremities, no focal motor deficits, no sensory deficits noted and gait normal SENSORIUM/ORIENTATION: Yes alert, Yes oriented to person, Yes oriented to place and Yes oriented to time Skin: NARRATIVE SKIN EXAM: no lacerations, abrasions, or ecchymosis noted Course Vital Signs: Vital signs: Vital Signs Temperature 98.1 F 07/25/20 08:06 Pulse Rate 102 H 07/25/20 08:06 Respiratory Rate 18 07/25/20 08:06 Blood Pressure 108/74 07/25/20 09:02 Pulse Oximetry 100 07/25/20 08:06 MDM - Fall Imaging Data^: XR lumbar: Radiologist's impression: [address] [address] XRay Report Signed Patient: Jaquelin Elliott Unit #: [id number] : 2000 90 Age/Sex: 20 / F ADM Date: 07/25/20 Loc: ER Room/Bed: Attending Dr: Ordering Provider/Ordering MD: Natividad oTrres Date of Service: 07/25/20 Procedure(s): XR lumbar spine 2-3V* 38624 Accession Number(s): [id number] Report Number: [id number] WS: [id number] Exam: XR lumbar spine 2-3V* [id number] Date/Time of Exam: 07/25/2020 8:22 AM Reason For Exam: fall/pain Findings: In the AP projection, the lumbar spine is straight. The sacroiliac joints are open. The facet structures are bilaterally symmetrical. In the lateral projection, the lumbar curve is well maintained. The intervertebral disc spaces are intact. No fractures or anomalies of the lumbar spine are noted. XR/XR lumbar spine 2-3V* 55038 IMPRESSION: Negative lumbar spine. Dictated By: Milton Zhang DO Signed By: Milton Zhang DO Signed Date/Time: 07/25/20916 DD/ 5 XR thoracic: Radiologist's impression: [facility] [address] XRay Report Signed Patient: Jaquelin Elliott Unit #: [id number] : 2000 Age/Sex: 20 / F ADM Date: 07/25/20 Loc: ER Room/Bed: Attending Dr: Ordering Provider/Ordering MD: Natividad Torres Date of Service: 07/25/20 Procedure(s): XR thoracic spine 3V* 93628 Accession Number(s): [id number] Report Number: [id number] WS: [id number] Exam: XR thoracic spine 3V* 34866 Date/Time of Exam: 07/25/2020 8:22 AM Reason For Exam: fall/pain No fracture or dislocation. Very slight levoscoliosis of the lower T-spine. Paraspinal soft tissues appear normal. XR/XR thoracic spine 3V* 97581 IMPRESSION: 1. Slight levoscoliosis otherwise normal T-spine study. Dictated By: Milton Zhang DO Signed By: Milton Zhang DO Signed Date/Time: 07/25/20918 DD/ 7 XR R hand: Radiologist's impression: [facility] [address] [address] XRay Report Signed Patient: Jaquelin Elliott Unit #: [id number] : 2000 Age/Sex: 20 / F ADM Date: 07/25/20 Loc: ER Room/Bed: Attending Dr: Ordering Provider/Ordering MD: Natividad Torres Date of Service: 07/25/20 Procedure(s): XR hand RT min 3V* 20945 Accession Number(s): [id number] Report Number: [id number] WS: [id number] Exam: XR hand RT min 3V* [id number] Date/Time of Exam: 07/25/2020 8:22 AM Reason For Exam: fall/pain Findings: No fractures, soft tissue swelling, or unusual calcifications are noted. The hand shows normal bony alignment. There is no irregularity of the bony architecture. XR/XR hand RT min 3V* 13241 IMPRESSION: Normal right hand. Dictated By: Milton Zhang DO Signed By: Milton Zhang DO Signed Date/Time: 07/25/20925 DD/ 3 Discharge Plan Discharge Patient Disposition: Home Clinical Impression: Fall from slipping on ice Qualifiers: Encounter type: initial encounter Qualified Code(s): W00.9XXA - Unspecified fall due to ice and snow, initial encounter Contusion of mid back Qualifiers: Encounter type: initial encounter Laterality: unspecified laterality Qualified Code(s): S20.229A - Contusion of unspecified back wall of thorax, initial encounter Contusion of hand, right Qualifiers: Encounter type: initial encounter Qualified Code(s): S60.221A - Contusion of right hand, initial encounter Condition: Stable Prescriptions: No Action escitalopram oxalate [Lexapro] 5 mg tablet 5 mg PO DAILY Qty: 30 RF: 0 [place]le (28) 0.3-30 mg-mcg tablet 1 tab PO DAILY Qty: 84 RF: 3 Discharge Orders: Discharge ED (Routine); Ordered 07/25/20 Ordered By: Natividad Torres Referrals: Rowdy Flores, [employer]ER[facility] [Primary Care Provider] - Patient Instructions: Opioid Safety Activity Restrictions/Additional Instructions: [facility] is committed to fighting the nationwide opiate epidemic. We are providing ALL patients with information regarding opiate safety. If you rec eived opiate pain medication during your stay or if you received a prescription for opiate pain medication-please review this handout. If not, you may disregard. Thank you. Coding Level of Care Code ED [place] Worker for Elder Fwvira Exam Comprehensive
--- NOTE | 2020-07-25 08:10 | XR_ITS ---
WS: [id number] Exam: XR thoracic spine 3V* [id number] Date/Time of Exam: 07/25/2020 8:22 AM Reason For Exam: fall/pain No fracture or dislocation. Very slight levoscoliosis of the lower T-spine. Paraspinal soft tissues a ppear normal. XR/XR thoracic spine 3V* 17964 IMPRESSION: 1. Slight levoscoliosis otherwise normal T-spine study.
[2020-07-25 09:02] VITALS: BP 108/74
== END 2020-07-25 09:00 | disposition home or self-care (01) ==
PROVIDERS: Emergency Provider Physician Assistant; PCP Nurse Practitioner
DX: S20.229A Contusion of unspecified back wall of thorax, initial encounter (principal); S60.221A Contusion of right hand, initial encounter; W00.0XXA Fall on same level due to ice and snow, initial encounter
CPT/HCPCS: 72072; 72100; 73130; 99283